=== PATIENT | female | born 1990 | race Caucasian/White ===

== ENCOUNTER → 2017-02-25 | Outpatient (CLI) | payer SELFPAY ==
[2017-02-25 10:45] LABS: Rheumatoid Factor, Qnt <9 IU/mL (<12)
== END | disposition home or self-care (01) ==
LOC: LABWHC1 09:35
PROVIDERS: ATTEND Family Medicine
DX: G56.02 Carpal tunnel syndrome, left upper limb (principal); M25.50 Pain in unspecified joint; G56.01 Carpal tunnel syndrome, right upper limb; F90.9 Attention-deficit hyperactivity disorder, unspecified type
CPT/HCPCS: 36415; 84439; 84443; 85652; 86038; 86431

== ENCOUNTER → 2017-03-06 | Outpatient (CLI) | payer SELFPAY ==
--- NOTE | 2017-03-06 22:13 | US ---
EXAMINATION TYPE: US thyroid st tissue head/neck DATE OF EXAM: 03/06/2017 2:45 PM COMPARISON: NONE CLINICAL HISTORY: 26-year-old female R94.6 abnormal thyroid labs. TECHNIQUE: Multiple sonographic images of thyroid gland are obtained. FINDINGS: Right Lobe: 4.5 x 2.2 x 1.3 cm Left Lobe: 4.2 x 1.1 x 1.2 cm Isthmus Thickness: 0.3 cm Overall Parenchyma: homogeneous No discrete nodule. Bilateral neck scanned, no evidence of lymphadenopathy. IMPRESSION: Normal appearance to the thyroid gland. No discrete nodule.
== END | disposition home or self-care (01) ==
LOC: RADUSWWP 14:00
PROVIDERS: ATTEND Family Medicine
DX: R94.6 Abnormal results of thyroid function studies (principal)
CPT/HCPCS: 76536

== ENCOUNTER → 2020-11-13 | Outpatient (CLI) | payer BC | END | disposition home or self-care (01) | LOC: LABWHC1 10:26 | PROVIDERS: ATTEND Family Medicine | DX: Z86.79 Personal history of other diseases of the circulatory system (principal) | CPT/HCPCS: 36415; 93005 ==

== ENCOUNTER → 2020-12-13 | Outpatient (CLI) | payer BC ==
--- NOTE | 2020-12-13 09:51 | MM ---
Reason for exam: clinical finding. Baseline mammogram. History: Patient is nulliparous. Silicone gel implants in both breasts, 2014. Indicated problem(s): pain in both breasts. Physical Findings: Nurse did not find any significant physical abnormalities on exam. MG 3D Diag Mammo Imp W/Cad ISELA Bilateral CC, MLO, and ID view(s) were taken. The breast tissue is heterogeneously dense. This may lower the sensitivity of mammography. There is no discrete abnormality. Bilateral retropectoral silicone implants. These results were verbally communicated with the patient and result sheet given to the patient on 12/13/20. ASSESSMENT: Negative, BI-RAD 1 RECOMMENDATION: Routine screening mammogram of both breasts at age 41. Manage on a clinical basis with regard to breast pain.
== END | disposition home or self-care (01) ==
LOC: RADMAMWWP 07:01
PROVIDERS: ATTEND Family Medicine
DX: N64.4 Mastodynia (principal)
CPT/HCPCS: 77062; 77066

== ENCOUNTER 2021-07-18 08:20 | Emergency (ER) | payer BC ==
[2021-07-18 08:25] VITALS: BP 106/70; PULSE 80; RESP 16; TEMP 99
--- NOTE | 2021-07-18 08:40 | ED ---
ENT HPI - General Chief complaint: ENT Stated complaint: Headache/Ear Pain/Sore Throat Time Seen by Provider: 07/18/21 08:26 Source: patient, RN notes reviewed Mode of arrival: ambulatory Limitations: no limitations - History of Present Illness Initial comments: Patient is a 30-year-old ill-appearing female presented today for right ear pain. Patient states symptoms started 48 hours ago with fever chills nausea and worsening right ear pain now presenting as 10/10. On palpation patient reports critical postauricular an article tenderness with erythema. Patient has erythematous right canal, with white drainage. Visualization of tympanic membrane was limited due to swelling of the canal. Patient denies any cough congestion or any tooth pain at this time. - Related Data Previous Rx's Medication Instructions Recorded Azithromycin [Zithromax Z-pack (6 0 mg PO DIRECTED #1 packet 07/18/21 tabs)] Clindamycin HCl 300 mg PO Q6HR #40 cap 07/18/21 Allergies Allergy/AdvReac Type Severity Reaction Status Date / Time Penicillins Allergy Swelling Verified 07/18/21 08:21 Review of Systems ROS Statement: Those systems with pertinent positive or pertinent negative responses have been documented in the HPI. ROS Other: All systems not noted in ROS Statement are negative. Past Medical History Past Medical History: No Reported History History of Any Multi-Drug Resistant Organisms: None Reported Additional Past Surgical History / Comment(s): 4 sinus Past Psychological History: No Psychological Hx Reported Smoking Status: Never smoker Past Alcohol Use History: Occasional Past Drug Use History: Marijuana General Exam Limitations: no limitations General appearance: alert, in distress (10/10 pain) Head exam: Present: atraumatic, normocephalic, normal inspection Eye exam: Present: normal appearance, PERRL, EOMI. Absent: scleral icterus, conjunctival injection, periorbital swelling ENT exam: Present: other (Right-sided tympanic dullness, erythematous auricule, tragus and, postauricular). Absent: TM's normal bilaterally, normal external ear exam (It is noted in the right EAC) Neck exam: Present: normal inspection. Absent: tenderness, meningismus, lymphadenopathy Respiratory exam: Present: normal lung sounds bilaterally. Absent: respiratory distress, wheezes, rales, rhonchi, stridor Cardiovascular Exam: Present: regular rate, normal rhythm, normal heart sounds. Absent: systolic murmur, diastolic murmur, rubs, gallop, clicks GI/Abdominal exam: Present: soft, normal bowel sounds. Absent: distended, tenderness, guarding, rebound, rigid Rectal exam: Present: deferred Extremities exam: Present: normal inspection, full ROM, normal capillary refill. Absent: tenderness, pedal edema, joint swelling, calf tenderness Back exam: Present: normal inspection Neurological exam: Present: alert, oriented X3, CN II-XII intact Psychiatric exam: Present: normal affect, normal mood Skin exam: Present: warm, dry, intact, normal color. Absent: rash Course Vital Signs 07/18/21 08:21 Temperature 99.0 F Pulse Rate 80 Respiratory 16 Rate Blood Pressure 106/70 O2 Sat by Pulse 97 Oximetry Medical Decision Making - Medical Decision Making Patient has otitis externa with most likely otitis media unable to fully visualize media. Patient will be placed on oral antibiotics, eardrops given the concern for possible otitis media. Patient has no definite mastoid tenderness. Patient will follow-up with ENT next 48 hours return for any worsening symptoms. Patient was started on Ciprodex, clinic mycin, azithromycin. Disposition Clinical Impression: Otitis externa, Otitis media Disposition: HOME SELF-CARE Condition: Stable Instructions (If sedation given, give patient instructions): Earache (ED) Additional Instructions: Please return to the Emergency Department if symptoms worsen or any other concerns. Prescriptions: Clindamycin HCl 300 mg PO Q6HR #40 cap Azithromycin [Zithromax Z-pack (6 tabs)] 0 mg PO DIRECTED #1 packet Is patient prescribed a controlled substance at d/c from ED?: No Referrals: August Suacedo MD [Primary Care Provider] - 1-2 days Erick Camarillo DO [Doctor of Osteopathic Medicine] - 1-2 days Time of Disposition: 08:53
[2021-07-18] MEDS ORDERED: ACET/COD 300 MG/30 MG STARTER PACK 6 TAB BTL PO STA (08:50)
[2021-07-18] MEDS ORDERED: CIPROFLOXACIN-DEXAMETH 0.3-0.1% DROPS 7.5 ML BTL RIGHT EAR STA (08:51)
== END 2021-07-18 09:10 | disposition home or self-care (01) ==
LOC: EC 08:20
DX: H60.91 Unspecified otitis externa, right ear (principal); H66.91 Otitis media, unspecified, right ear; Z88.0 Allergy status to penicillin
CPT/HCPCS: 99283